=== PATIENT | male | born 2000 | race Caucasian/White ===

== ENCOUNTER 2022-08-19 02:40 | Emergency (ER) | payer OTHER ==
[~2022-08-19] VITALS: Ht 177.8 cm; Wt 90.7 kg
[2022-08-19 02:42] VITALS: BP 161/85
--- NOTE | 2022-08-19 02:42 | NUR ---
PT [facility] BLS TO ER BED 06.
--- NOTE | 2022-08-19 02:43 | NUR ---
DR Madyson GOSS AT BEDSIDE EVALUATING PT.
[2022-08-19] MEDS ORDERED: NACL 0.9% 1,000 ML IV ONE ×2 (02:50)
--- NOTE | 2022-08-19 03:01 | NUR ---
PT TO CT
[2022-08-19 03:02] LABS: BASOPHILS % (AUTO) 0.3 % (0.0-2.0); EOSINOPHILS % (AUTO) 0.1 % (0.0-4.0); HEMATOCRIT 44.9 % (36-52); HEMOGLOBIN 15.7 g/dL (12.0-18.0); LYMPHOCYTES # (AUTO) 1.3 K/uL (2.0-11.5); LYMPHOCYTES % (AUTO) 10.1 % (20.5-51.1); MEAN CORPUSCULAR HEMOGLOBIN 29 pg (27-31); MEAN CORPUSCULAR HGB CONC 35 g/dL (33-37); MEAN CORPUSCULAR VOLUME 81.9 fL (80-94); MONOCYTES # (AUTO) 0.5 K/uL (0.8-1.0); MONOCYTES % (AUTO) 3.8 % (1.7-9.3); NEUTROPHILS # (AUTO) 11.5 K/uL (1.8-7.7); NEUTROPHILS % (AUTO) 85.7 % (42.2-75.2); PLATELET COUNT (AUTO) 245 K/uL (140-450); RED BLOOD CELL COUNT(AUTO) 5.48 MIL/uL (4.20-6.10); RED CELL DISTRIBUTION WIDTH 13.3 % (11.6-13.7); WHITE BLOOD COUNT (AUTO) 13.4 K/uL (4.8-10.8)
--- NOTE | 2022-08-19 03:09 | NUR ---
PT BACK FROM CT VIA [facility]
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
--- NOTE | 2022-08-19 03:16 | NUR ---
LAURA, PT'S MOM STATES SHE CAN TELEPHONE DIRECTORY DELIVERER PT WHEN READY FOR D/C. [id number]
[2022-08-19 03:25] LABS: ALBUMIN 4.5 g/dL (3.4-5.0); ANION GAP 14.8 (8-16); CARBON DIOXIDE 21.9 mmol/L (21-32); CREATININE 0.8 mg/dL (0.6-1.3); POTASSIUM 3.7 mmol/L (3.5-5.1); THYROID STIMULATING HORMONE 1.29 uIU/mL (0.34-3.74); TOTAL BILIRUBIN 0.3 mg/dL (0.0-1.0)
[2022-08-19 05:24] VITALS: BP 126/77
--- NOTE | 2022-08-19 05:24 | NUR ---
Patient discharged with v/s stable. Written and verbal after care instructions given and explained. Patient verbalized understanding. Ambulatory with steady gait. All questions addressed prior to discharge. Advised to follow up with PMD.
== END 2022-08-19 05:24 | disposition home or self-care (01) ==
LOC: MED 02:40
DX: F12.90 Cannabis use, unspecified, uncomplicated (principal); F16.90 Hallucinogen use, unspecified, uncomplicated; Z72.89 Other problems related to lifestyle
CPT/HCPCS: 36415; 70450; 80053; 84443; 85025; 93005; 96360; 96361; 99285; G0482